=== PATIENT | female | born 1990 | race Two or more races ===

== ENCOUNTER 2023-04-26 21:08 | Emergency (ER) | payer OTHER ==
[~2023-04-26] VITALS: Ht 170.2 cm; Wt 90.7 kg
[2023-04-27] MEDS ORDERED: KETO10TA2 PO (06:44)
[2023-04-27] MEDS ORDERED: ONDANSETRON ODT4 MG PO (06:44)
== END 2023-04-27 07:07 ==
LOC: ER 21:08
DX: N83.209 Unspecified ovarian cyst, unspecified side (principal)